=== PATIENT | male | born 1990 | race Two or more races ===

== ENCOUNTER 2020-12-02 17:20 | Observation (INO) | payer SELFPAY ==
[~2020-12-02] VITALS: Ht 182.9 cm; Wt 81.3 kg
[2020-12-02] MEDS ORDERED: diphenhydrAMINE 50 MG/ML VIAL IVP ONE (18:30)
[2020-12-02] MEDS ORDERED: METOCLOPRAMIDE HCL 10 MG/2 ML VIAL. IVP ONE (18:30)
[2020-12-02] MEDS ORDERED: KETOROLAC 15 MG/ML VIAL. IVP ONE (18:30)
[2020-12-02] MEDS ORDERED: IV NORMAL SALINE 1000ML BAG 1,000 ML IV ONE (18:30)
--- NOTE | 2020-12-02 19:24 | PHYS DOC ---
Past Medical History Past Medical History: Other Additional Past Medical Histor: covid 19 Past Surgical History: Other Additional Past Surgical Histo: small intestine as an Smoking Status: Former Smoker Additional Information: quit 5 YEARS AGO Alcohol Use: Occasionally Drug Use: None Adult General Chief Complaint Chief Complaint: HEADACHE HPI HPI Patient is a 30 year old male who denies any significant past medical history now presenting emergency department complaint of new onset headache. Patient states over the last 2 weeks he had a throbbing headache over the right anterior and posterior portion of the head which radiates into the back of his neck. States is worse sometimes when he bends forward. Has been associated with mild nausea and vomiting. Denies any associated vision changes, numbness, weakness or neurologic deficits. Denies any photophobia or photophobia. States the headache is intermittent and does not know any identifiable aggravating or alleviating factors. Review of Systems Review of Systems Constitutional: Denies fever or chills [] Eyes: Denies change in visual acuity, redness, or eye pain [] HENT: Denies nasal congestion or sore throat [] Respiratory: Denies cough or shortness of breath [] Cardiovascular: No additional information not addressed in HPI [] GI: Denies abdominal pain, nausea, vomiting, bloody stools or diarrhea [] : Denies dysuria or hematuria [] Musculoskeletal: Denies back pain or joint pain [] Integument: Denies rash or skin lesions [] Neurologic: Denies headache, focal weakness or sensory changes [] Endocrine: Denies polyuria or polydipsia [] All other systems were reviewed and found to be within normal limits, except as documented in this note. Current Medications Current Medications Current Medications Medications (Trade) Dose Ordered Sig/Octavio Start Time Stop Time Status Last Admin Dose Admin Diphenhydramine HCl (Benadryl) 50 mg 1X ONCE 12/02/20 18:30 12/02/20 18:31 DC 12/02/20 18:42 50 MG Ketorolac Tromethamine (Toradol 15mg Vial) 15 mg 1X ONCE 12/02/20 18:30 12/02/20 18:31 DC 12/02/20 18:43 15 MG Metoclopramide HCl (Reglan Vial) 10 mg 1X ONCE 12/02/20 18:30 12/02/20 18:31 DC 12/02/20 18:42 10 MG Sodium Chloride 1,000 ml @ 1,000 mls/hr 1X ONCE 12/02/20 18:30 12/02/20 19:29 DC 12/02/20 18:43 1,000 MLS/HR Allergies Allergies Allergies Coded Allergies Type Severity Reaction Last Updated Verified No Known Drug Allergies 08/14/14 No Physical Exam Physical Exam Constitutional: Well developed, well nourished, no acute distress, non-toxic appearance. [] HENT: Normocephalic, atraumatic, bilateral external ears normal, oropharynx moist, no oral exudates, nose normal. [] Eyes: PERRLA, EOMI, conjunctiva normal, no discharge. [] Neck: Normal range of motion, no tenderness, supple, no stridor. [] Cardiovascular:Heart rate regular rhythm, no murmur [] Lungs & Thorax: Bilateral breath sounds clear to auscultation [] Abdomen: Bowel sounds normal, soft, no tenderness, no masses, no pulsatile masses. [] Skin: Warm, dry, no erythema, no rash. [] Back: No tenderness, no CVA tenderness. [] Extremities: No tenderness, no cyanosis, no clubbing, ROM intact, no edema. [] Neurologic: Alert and oriented X 3, normal motor function, normal sensory function, no focal deficits noted. [] Psychologic: Affect normal, judgement normal, mood normal. [] Current Patient Data Vital Signs Vital Signs Date Time Temp Pulse Resp B/P (MAP) Pulse Ox O2 Delivery O2 Flow Rate FiO2 12/02/20 17:57 97.7 64 18 110/77 (88) 100 Room Air 97.7 EKG EKG [] Radiology/Procedures Radiology/Procedures [] Course & Med Decision Making Course & Med Decision Making Pertinent Labs and Imaging studies reviewed. (See chart for details) 30M with no past medical history migraines now presenting to emergency department complaint of new onset of right-sided headache which is impairment causing some nausea. Sinus symptoms are not completely consistent with an acute migraine therefore we will treat symptomatically but at the same time will obtain a CT scan of the head to make sure there is no significant underlying pathology. 21:44 -CT scan did demonstrate what appears to be a mild amount of hydrocephalus. Patient is having papilledema is making this likely normal pressure hydrocephalus. I discussed this with the neurologist on-call who states that the patient can likely be discharged home with amitriptyline. However we do not have any neurosurgeon available to evaluate the CT scan. I had an extensive discussion with the patient and his family about options at this point they are electing to go home with amitriptyline and plan for neurolo gy follow-up Nat Disclaimer Dragon Disclaimer This electronic medical record was generated, in whole or in part, using a voice recognition dictation system. Departure Departure Impression: Primary Impression: Normal pressure hydrocephalus Disposition: 01 DC HOME SELF CARE/HOMELESS Condition: GOOD Referrals: СВЕТЛАНА SALEEM MD, AMAN MD Patient Instructions: Hydrocephalus Additional Instructions: EMERGENCY DEPARTMENT GENERAL DISCHARGE INSTRUCTIONS Thank you for coming to [facility] Emergency Department (ED) today and trusting us with you care. We trust that you had a positive experience in our Emergency Department. If you wish to speak to the department management, you may call the Director at [phone]. YOUR FOLLOW UP INSTRUCTIONS ARE FOLLOWS: 1. Do you have a private Doctor? If you do not have a private doctor, please ask for a resource list of physicians or clinics that may be able to assist you with follow up care. 2. The Emergency Physicain has interpreted your x-rays. The X-Ray specialist will also review them. If there is a change in the findings, you will be notified in 48 hours when at all possible. 3. A lab test or culture has been done, your results will be reviewed and you will be notified if you need a change in treatment. ADDITIONAL INSTRUCTIONS AND INFORMATION: 1. Your care today has been supervised by a physician who is specially trained in emergency care. Many problems require more than one evaluation for a complete diagnosis and treatment. We recommend that you schedule your follow up appointment as recommended to ensure complete treatment of you illness or injury. If you are unable to obtain follow up care and continue to have a problem, or if your condition worsens, we recommend that you return to the ED. 2. We are not able to safely determine your condition over the phone nor are we able to give sound medical advice over the phone. For these safety reasons, if you call for medical advice we will ask you to come to the ED for further evaluation. 3. If you have any questions regarding these discharge instructions please call the ED at [phone]. SAFETY INFORMATION: In the interest of safety, wellness, and injury prevention; we encourage you to wear your sealbelt, if you smoke; quite smoking, and we encourage family to use a protective helmet for bicycling and other sporting events that present an increased risk for head injury. IF YOUR SYMPTOMS WORSEN OR NEW SYMPTOMS DEVELOP, OR YOU HAVE CONCERNS ABOUT YOUR CONDITION; OR IF YOUR CONDITION WORSENS WHILE YOU ARE WAITING FOR YOUR FOLLOW UP APPOINTMENT; EITHER CONTACT YOUR PRIMARY CARE DOCTOR, THE PHYSICIAN WHOSE NAME AND NUMBER YOU WERE GIVEN, OR RETURN TO THE ED IMMEDIATELY. DEANGELO BUTLER MD Dec 02, 2020 19:24
--- NOTE | 2020-12-02 19:30 | RAD ---
CT head without contrast: Reason for examination: Headache. Comparison is made to previous study dated 08/14/2014. Helical images were obtained through the brain. No contrast was administered. Reconstruction was perf ormed in sagittal and coronal plane. Exposure: One or more of the following individualized dose reduction techniques were utilized for thi s examination: 1. Automated exposure control 2. Adjustment of the mA and/or kV according to patient size 3. Use of iterative reconstruction technique. There is symmetric dilatation of the lateral ventricular systems and dilatation of the third ventricl e which is new since previous exam. Fourth ventricle and not dilated. There is no periventricular laurence ma evident. No midline shift is seen. There is no evidence of intracranial hemorrhage, infarct, mass or edema. No abnormalities of seen at the orbits. The paranasal sinuses and mastoid air cells are darline ar. No acute skull abnormality is seen. IMPRESSION: New dilatation of the lateral ventricular systems and third ventricle without dilatation of the fourt h ventricle. No other focal intracranial abnormalities. Electronically signed by: Lakshmi Gastelum MD (12/02/2020 7:28 PM) [facility]
[2020-12-02] MEDS ORDERED: ONDA4TAB7 PO (22:08)
[2020-12-02] MEDS ORDERED: AMIT25TA PO (22:08)
[2020-12-02] MEDS ORDERED: ONDANSETRON PF 4 MG/2 ML VIAL. IV PRN (23:00)
[2020-12-03 00:54] LABS: BASO # 0.1 x10^3/uL (0.0-0.2); BASO % 1 % (0-3); EOS # 0.1 x10^3/uL (0.0-0.7); EOS % 1 % (0-3); HEMATOCRIT 43.4 % (39.0-53.0); HEMOGLOBIN 14.9 g/dL (13.0-17.5); LYMPH # 2.2 x10^3/uL (1.0-4.8); LYMPH % 22 % (24-48); MEAN CORPUSCULAR HEMOGLOBIN 30 pg (25-35); MEAN CORPUSCULAR HGB CONC 34 g/dL (31-37); MEAN CORPUSCULAR VOLUME 87 fL (79-100); MONO # 0.6 x10^3/uL (0.0-1.1); MONO % 6 % (0-9); NEUT # 6.7 x10^3/uL (1.8-7.7); NEUT % 69 % (31-73); PLATELET COUNT 207 x10^3/uL (140-400); RED BLOOD COUNT 4.97 x10^6/uL (4.30-5.70); RED CELL DISTRIBUTION WIDTH 13.8 % (11.5-14.5); WHITE BLOOD COUNT 9.7 x10^3/uL (4.0-11.0)
[2020-12-03] MEDS ORDERED: ACET325T21 PO (00:59)
--- NOTE | 2020-12-03 01:09 | NUR ---
The patient, JEAN CLAUDE TIMMONS, 30 y/o, M admitted by MIGUEL MUÑOZ III, DO, was given written information regarding hospital policies, unit procedures and contact persons. Pt. complains of pain 7/10 on the left side of his head. Call light is within reach with bed in lowest locked position. Will continue to monitor.
[2020-12-03 01:11] LABS: CALCIUM 9.2 mg/dL (8.5-10.1); CREATININE 0.7 mg/dL (0.7-1.3); GFR 130.7; POTASSIUM 3.8 mmol/L (3.5-5.1)
[2020-12-03] MEDS: HYDROcodone/APAP 5/325MG 1 TAB TABLET PO PRN ×2 (02:42→10:23)
[2020-12-03 03:10] VITALS: BP 116/77
[2020-12-03 07:17] VITALS: BP 116/73
[2020-12-03] MEDS ORDERED: FLU VACC QS 2020-21(6MOS+)/PF 0.5 ML SYRINGE. VAX IM ONE (09:00)
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
[2020-12-03 10:50] VITALS: BP 108/79
[2020-12-03] MEDS ORDERED: GADOTERATE 7.5 MMOL/15ML VIAL. IVP ONE (12:45)
[2020-12-03] MEDS ORDERED: HYDROmorphone 2 MG/ML VIAL IVP PRN (13:15)
--- NOTE | 2020-12-03 14:29 | PDOC ---
Provider Note Date of Service: DATE: 12/03/20 TIME: 14:24 Provider Note Patient seen and examined consulted for headache/ hydrocephalus c/o headache since September but severe over the last 2 weeks non focal exam MRI with posterior fossa mass with pressure on 4th ventricle Almost certainly he will require surgery Imaging clouded to [facility] will follow Justifications for Admission Other Justification JOVAN HOLBROOK MD Dec 03, 2020 14:28
--- NOTE | 2020-12-03 14:39 | RAD ---
MRI BRAIN WO+W Date: 12/03/2020 12:25 PM Indication: hydrocephalus Comparison: CT 12/02/2020. Technique: Multiplanar multisequence MRI of the brain was performed with and without intravenous cont rast using the standard protocol. 15 cc Clariscan contrast was administered intravenously during the exam. Findings: Ill-defined T2/FLAIR hyperintense heterogeneously enhancing mass centered in the cerebellar vermis me asuring approximately 4.0 x 2.8 x 2.9 cm. Mass effect on surrounding structures with effacement of th e foramen of Magendie and Luschka. Effacement of the CSF at the level of the foramen magnum with prot rusion of the cerebellar tonsils 7 mm. Protrusion of the superior cerebellum through the transtentori al notch. Dilatation of the lateral and third ventricles. Trace periventricular T2/FLAIR hyperintensity. No acute infarct. No acute hemorrhage. The scalp and calvarium are normal. The pituitary and sella are normal. No Chiari malformation. The v isualized upper cervical spine is normal. The visualized orbits and globes are normal. The visualized paranasal sinuses are clear. The mastoid air cells are clear. Normal flow voids within the vertebral, basilar, and internal carotid arteries indicating patency. IMPRESSION: 1. Ill-defined heterogeneously enhancing mass in the midline posterior fossa. Considerations would in clude medulloblastoma, astrocytoma, other primary DAIRY DEPARTMENT MANAGER neoplasm, or metastatic disease. Significant ma ss effect with protrusion of the cerebellum superiorly through the transtentorial notch and inferiorl y through the foramen magnum. 2. Obstructive hydrocephalus. Mild periventricular T2/FLAIR hyperintensity likely represents transepe ndymal flow of CSF. FOR INTERNAL CODING PURPOSES Critical result: Findings discussed with the patient's nurse at 12/03/2020 2:30 PM. RESULT CODE: (C) Electronically signed by: Maximus Guallpa MD (12/03/2020 2:37 PM) [id number]
[2020-12-03 14:45] VITALS: BP 125/81
[2020-12-03] MEDS ORDERED: ALBUTEROL SULFATE 2.5 MG/3 ML NEBU. NEB PRN (15:00)
[2020-12-03] MEDS ORDERED: DOCUSATE SODIUM 100 MG CAPSULE. PO PRN (15:00)
[2020-12-03] MEDS ORDERED: MAG HYDROX/ALUMINUM HYD/SIMETH 30 ML ORAL.SUSP PO PRN (15:00)
[2020-12-03] MEDS ORDERED: SODIUM PHOSPHATES 19/7GM 133 ML ENEMA. PR PRN (15:00)
[2020-12-03] MEDS ORDERED: guaiFENesin ORAL 200 MG/10 ML LIQUID. PO PRN (15:00)
[2020-12-03] MEDS ORDERED: IV NORMAL SALINE 1000ML BAG 1,000 ML IV SCH (15:00)
[2020-12-03] MEDS ORDERED: 0.9 % SODIUM CHLORIDE 10 ML DISP.SYRIN. IV PRN (15:00)
[2020-12-03] MEDS ORDERED: LORazepam 0.5 MG TABLET PO PRN (15:00)
[2020-12-03] MEDS ORDERED: ONDANSETRON PF 4 MG/2 ML VIAL. IV PRN (15:00)
[2020-12-03] MEDS ORDERED: TOPIRAMATE 25 MG TABLET. PO SCH ×2 (15:30→21:00)
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
--- NOTE | 2020-12-03 17:02 | HP ---
ADMIT DATE: HISTORY OF PRESENT ILLNESS: This 30-year-old male was admitted through the ER with severe headache yesterday. He has actually had this headache since September. Over the last 2 weeks, it has become more severe, anterior and posterior portion of the head and radiates to the back of his neck. He has had some mild weight loss with nausea and vomiting. He has had some difficulty with ambulation and balance problems. No seizures. Denies any photophobia. The headache is worse when he bends forward. He is a unemployed at this time. SOCIAL HISTORY: No tobacco use, drug use or alcohol use. REVIEW OF SYSTEMS: Denies fever or chills. Denies visual changes. Denies cough, shortness of breath, chest pain, back pain or abdominal pain. Complains mainly of headache. Has balance problems, but no falls. Denies polyuria or polydipsia. A 14-point review of systems were otherwise unremarkable. Denies bleeding problems. Has had some dry skin and dizziness with gait disturbance. PHYSICAL EXAMINATION: NECK: Supple. HEENT: Throat and pharynx clear. External ears are normal. Oropharynx is clear. Nose is normal. NEUROLOGIC: He is alert and oriented. Food Chemist was the nurse, who is Irish. LUNGS: Clear. CARDIOVASCULAR: Regular rate and rhythm without murmur, S3 or S4. ABDOMEN: Soft, obese without tenderness or mass. EXTREMITIES: Without clubbing, cyanosis or edema. SKIN: Warm and dry. No rash. Without lesions. MUSCULOSKELETAL: Back without CVA tenderness. NEUROLOGIC: His affect is normal. Judgment is normal. Mood is normal. He was not ambulated. Cranial nerves 2-12 are grossly intact. Gait was not tested. MRI of the head shows ill-defined enhancing mass in the midline posterior fossa. IMPRESSION: 1. Differential would include medulloblastoma, astrocytoma and metastatic disease. There is significant mass effect with protrusion to cerebellum superiorly through the tense tentorial notch and inferiorly through the foramen magnum. There is evidence of obstructive hydrocephalus, likely representing transependymal flow of CSF. 2. Remote tobacco abuse. PLAN: Plan transfer to [facility] except neurosurgeon, Dr. Reddy who has arranged transfer. Use IV pain meds for pain control, DVT prophylaxis with SCDs. Total critical care time was 35 minutes. CAROLINE BARRIENTOS MD DR: NILO/ruth JOB#: [id number] / [id number]
--- NOTE | 2020-12-03 17:02 | NUR ---
Per Dr. Jasso patient is to be transferred to for surgery. Nursing retread supervisor notified and patient and patient with updated. Report called to nurse Gregorio, phone number [phone]. Awaiting EMS for transfer.
--- NOTE | 2020-12-03 18:12 | PDOC2 ---
CONSULT Date of Consult Date of Consult DATE: 12/03/20 TIME: 18:11 Identification/Chief Complaint Chief Complaint headaches History of Present Illness Reason for Visit: This patient is 30 a year old male who presented to emergency room with complaint of headache. He reports he has headaches which started over 2 weeks back. He was having more headaches on back of the head which are radiating to top in front of the head. Headaches are associated with nausea, photophobia. Denied any difficulty speaking. Patient denied any focal extremity weakness. Patient denies any complaint of dyspnea shortness of breath fever cough Past Medical History GI: No pertinent hx Family History Family History: Hypertension Social History No ALCOHOL: none Drugs: None Current Problem List Problem List Problems Medical Problems: (1) Normal pressure hydrocephalus Status: Acute Current Medications Current Medications Current Medications Metoclopramide HCl (Reglan Vial) 10 mg 1X ONCE IVP Last administered on 12/02/20at 18:42; Start 12/02/20 at 18:30; Stop 12/02/20 at 18:31; Status DC Diphenhydramine HCl (Benadryl) 50 mg 1X ONCE IVP Last administered on 12/02/20at 18:42; Start 12/02/20 at 18:30; Stop 12/02/20 at 18:31; Status DC Sodium Chloride 1,000 ml @ 1,000 mls/hr 1X ONCE IV Last administered on 12/02/20at 18:43; Start 12/02/20 at 18:30; Stop 12/02/20 at 19:29; Status DC Ketorolac Tromethamine (Toradol 15mg Vial) 15 mg 1X ONCE IVP Last administered on 12/02/20at 18:43; Start 12/02/20 at 18:30; Stop 12/02/20 at 18:31; Status DC Ondansetron HCl (Zofran) 4 mg PRN Q8HRS PRN IV NAUSEA/VOMITING 1ST CHOICE Last administered on 12/03/20at 10:27; Start 12/02/20 at 23:00; Stop 12/03/20 at 22:59 Influenza Virus Vaccine Quadrival (Fluzone Quad [id number] Syringe) 0.5 ml ONCE ONCE VAX IM ; Start 12/03/20 at 09:00; Stop 12/03/20 at 09:01; Status DC Acetaminophen/ Hydrocodone Bitart (Lortab 5/325) 1 tab PRN Q4HRS PRN PO MODERATE PAIN 4-6 Last administered on 12/03/20at 10:23; Start 12/03/20 at 02:00 Gadoterate Meglumine (Clariscan) 15 ml 1X ONCE IVP Last administered on 12/03/20at 13:32; Start 12/03/20 at 12:45; Stop 12/03/20 at 12:47; Status DC Hydromorphone HCl (Dilaudid) 0.6 mg PRN Q4HRS PRN IVP PAIN Last administered on 12/03/20at 15:33; Start 12/03/20 at 13:15 Sodium Chloride (Normal Saline Flush) 3 ml QSHIFT PRN IV AFTER MEDS AND BLOOD DRAWS; Start 12/03/20 at 15:00 Sodium Chloride 1,000 ml @ 100 mls/hr Q10H IV Last administered on 12/03/20at 15:32; Start 12/03/20 at 15:00 Ondansetron HCl (Zofran) 4 mg PRN Q4HRS PRN IV NAUSEA/VOMITING Last administered on 12/03/20at 15:33; Start 12/03/20 at 15:00 Al Hydroxide/Mg Hydroxide (Mylanta Plus Xs) 30 ml PRN DAILY PRN PO HEARTBURN / GAS; Start 12/03/20 at 15:00 Sodium Monofluorophosphate (Fleet Adult) 133 ml PRN DAILY PRN [place] CONSTIPATION; Start 12/03/20 at 15:00 Docusate Sodium (Colace) 100 mg PRN BID PRN PO HARD STOOLS; Start 12/03/20 at 15:00 Albuterol Sulfate (Ventolin Neb Soln) 2.5 mg PRN Q4HRS PRN NEB SHORTNESS OF BREATH; Start 12/03/20 at 15:00 Guaifenesin (Robitussin) 200 mg PRN Q4HRS PRN PO COUGH; Start 12/03/20 at 15:00 Lorazepam (Ativan) 0.5 mg PRN Q4HRS PRN PO ANXIETY / AGITATION; Start 12/03/20 at 15:00 Topiramate (Topamax) 25 mg 1X PO ; Start 12/03/20 at 15:30 Topiramate (Topamax) 25 mg BID PO ; Start 12/03/20 at 21:00 Active Scripts Active Reported Acetaminophen 325 Mg Tablet 1 Tab PO PRN DAILY PRN 30 Days Allergies Allergies: Coded Allergies: No Known Drug Allergies (Unverified , 08/14/14) Physical Exam Physical Exam General no acute distress. HEENT: Normocephalic and atraumatic. NECK: Supple without bruit Respiratory: Clear to auscultation bilaterally Heart: Regular rate and rhythm, S1S2 normal NEUROLOGIC: Mental status Alert oriented. Cranial nerve equally reactive pupils, and intact extraocular movements. No facial asymmetry. Palate elevates and tongue protrudes in midline. Reflexes are 1-2 with flexor plantar responses. Coordination no dysmetria Strength able to move all exts equally. Sensory exam is intact for light touch and pinprick. Gait in bed. A 10-point review of systems was obtained. Other than the history of present illness the remainder of the review of systems is negative. Vitals VITALS Vital Signs Date Time Temp Pulse Resp B/P (MAP) Pulse Ox O2 Delivery O2 Flow Rate FiO2 12/03/20 16:03 Room Air 12/03/20 14:45 97.8 70 18 125/81 (96) 99 97.8 Labs Labs Laboratory Tests Test 12/03/20 00:30 White Blood Count 9.7 x10^3/uL (4.0-11.0) Red Blood Count 4.97 x10^6/uL (4.30-5.70) Hemoglobin 14.9 g/dL (13.0-17.5) Hematocrit 43.4 % (39.0-53.0) Mean Corpuscular Volume 87 fL (79-100) Mean Corpuscular Hemoglobin 30 pg (25-35) Mean Corpuscular Hemoglobin Concent 34 g/dL (31-37) Red Cell Distribution Width 13.8 % (11.5-14.5) Platelet Count 207 x10^3/uL (140-400) Neutrophils (%) (Auto) 69 % (31-73) Lymphocytes (%) (Auto) 22 % (24-48) Monocytes (%) (Auto) 6 % (0-9) Eosinophils (%) (Auto) 1 % (0-3) Basophils (%) (Auto) 1 % (0-3) Neutrophils # (Auto) 6.7 x10^3/uL (1.8-7.7) Lymphocytes # (Auto) 2.2 x10^3/uL (1.0-4.8) Monocytes # (Auto) 0.6 x10^3/uL (0.0-1.1) Eosinophils # (Auto) 0.1 x10^3/uL (0.0-0.7) Basophils # (Auto) 0.1 x10^3/uL (0.0-0.2) Sodium Level 138 mmol/L (136-145) Potassium Level 3.8 mmol/L (3.5-5.1) Chloride Level 102 mmol/L (98-107) Carbon Dioxide Level 27 mmol/L (21-32) Anion Gap 9 (6-14) Blood Urea Nitrogen 11 mg/dL (8-26) Creatinine 0.7 mg/dL (0.7-1.3) Estimated GFR (Cockcroft-Gault) 130.7 Glucose Level 92 mg/dL (70-99) Calcium Level 9.2 mg/dL (8.5-10.1) Laboratory Tests Test 12/03/20 00:30 White Blood Count 9.7 x10^3/uL (4.0-11.0) Red Blood Count 4.97 x10^6/uL (4.30-5.70) Hemoglobin 14.9 g/dL (13.0-17.5) Hematocrit 43.4 % (39.0-53.0) Mean Corpuscular Volume 87 fL (79-100) Mean Corpuscular Hemoglobin 30 pg (25-35) Mean Corpuscular Hemoglobin Concent 34 g/dL (31-37) Red Cell Distribution Width 13.8 % (11.5-14.5) Platelet Count 207 x10^3/uL (140-400) Neutrophils (%) (Auto) 69 % (31-73) Lymphocytes (%) (Auto) 22 % (24-48) Monocytes (%) (Auto) 6 % (0-9) Eosinophils (%) (Auto) 1 % (0-3) Basophils (%) (Auto) 1 % (0-3) Neutrophils # (Auto) 6.7 x10^3/uL (1.8-7.7) Lymphocytes # (Auto) 2.2 x10^3/uL (1.0-4.8) Monocytes # (Auto) 0.6 x10^3/uL (0.0-1.1) Eosinophils # (Auto) 0.1 x10^3/uL (0.0-0.7) Basophils # (Auto) 0.1 x10^3/uL (0.0-0.2) Sodium Level 138 mmol/L (136-145) Potassium Level 3.8 mmol/L (3.5-5.1) Chloride Level 102 mmol/L (98-107) Carbon Dioxide Level 27 mmol/L (21-32) Anion Gap 9 (6-14) Blood Urea Nitrogen 11 mg/dL (8-26) Creatinine 0.7 mg/dL (0.7-1.3) Estimated GFR (Cockcroft-Gault) 130.7 Glucose Level 92 mg/dL (70-99) Calcium Level 9.2 mg/dL (8.5-10.1) Assessment/Plan Assessment/Plan This patient is 30 a year old male who presented to emergency room with complaint of headache. He reports he has headaches which started over 2 weeks back. He was having more headaches on back of the head which are radiating to top in front of the head. Headaches are associated with nausea, photophobia. Denied any difficulty speaking. Patient denied any focal extremity weakness. 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 Differential included Madelung blastoma astrocytoma, primary neoplasm, metastatic disease, there was significant mass effect with protrusion of cerebellum, hydrocephalus, neurosurgery recommendations appreciated. Patient is being transferred to [facility] for further workup, treatment plan. Patient is requiring pain control medications. Plan discussed at length Thank you for allowing me to take part in this patient's care. Please not hesitate to contact me with questions. Transcribed using dictation device. The dictation could contain irregularities inherent in the voice to text conversion software, which may not be detected during the document review process. Please contact our office in case of any confusion or for any clarification, as needed. MILES GODDARD MD Dec 03, 2020 18:12
--- NOTE | 2020-12-03 18:20 | NUR ---
Patient transferred to by EMS. transportation and unit called to update with arrival of EMS.
== END 2020-12-03 18:20 | disposition short-term general hospital (02) ==
LOC: ER 17:20 → 4 NORTH 23:56
PROVIDERS: ADMIT Internal Medicine; ATTEND Internal Medicine
DX: G91.2 (Idiopathic) normal pressure hydrocephalus (principal); R11.2 Nausea with vomiting, unspecified; Z86.16 Personal history of COVID-19; Z87.891 Personal history of nicotine dependence
CPT/HCPCS: 36415; 70450; 70553; 80048; 85025; 96361; 96374; 96375; 96376; 99284; A9575; G0378; J1170; J1200; J1885; J2405; J2765; J7030; G0379